=== PATIENT | female | born 1995 | race Caucasian/White ===

== ENCOUNTER 2023-03-28 16:28 | Emergency (ER) | payer OTHER, SELFPAY ==
[2023-03-28 16:31] VITALS: BP 136/81; PULSE 98; RESP 18; TEMP 36.9; O2SAT 100
--- NOTE | 2023-03-28 17:25 | ED.GENADULT ---
HPI - General Adult General Chief complaint: Unspecified Stated complaint: lip ring removal Time Seen by Provider: 03/28/23 16:36 History of Present Illness HPI narrative: Shanthi Dumont is a 27 y/o female who presents with reports of having her right lower lip pierced for about 3 months, the actual piercing was removed and she was worried about it closing so she placed a vega chain ring in its place. Now she comes in with concerns of infection and wants the ring out. She states that she can not get it removed herself. Related Data Allergies Allergy/AdvReac Type Severity Reaction Status Date / Time aspirin Allergy Unknown Verified 03/28/23 17:10 red dye Allergy Diarrhea Verified 03/28/23 17:09 Review of Systems Review of Systems: CONSTITUTIONAL: Denies fever, chills, or sweats. EYES: Denies visual changes, redness, or discharge. ENT: Denies rhinorrhea, congestion, sore throat, or otalgia. CARDIOVASCULAR: Denies chest pain, palpitations, or edema. RESPIRATORY: Denies cough or dyspnea. GASTROINTESTINAL: Denies abdominal pain, nausea, vomiting, or diarrhea. GENITOURINARY: Denies dysuria or hematuria. SKIN: skin irritation and pain to her right lower lip after placing a vega chair through her bottom lip MUSCULOSKELETAL: Denies back pain, joint pain, or myalgia. NEUROLOGIC: Denies headache, numbness, dizziness, or weakness. PSYCHIATRIC: Denies anxiety or depression. Exam Narrative: GENERAL: Well-appearing, well-nourished, and in no acute distress. HEAD: Normocephalic, atraumatic. EYES: PERRLA and EOMI. ENT: Nares clear, no rhinorrhea or epistaxis. Mucous membranes moist, notable irritation to the right lower lip where the piercing is. Oropharynx without tonsillar hypertrophy exudate or other lesions. NECK: Supple. No adenopathy or masses. No carotid bruits or JVD CHEST: Clear to auscultation. No respiratory distress. No wheezes rales or rhonchi HEART: Regular rate and rhythm. No murmur heard. Normal peripheral pulses. ABDOMEN: Soft, nontender, nondistended, normal active bowel sounds. EXTREMITIES: Normal range of motion. No edema. SKIN: No rash NEURO: No focal deficits. Alert and oriented x3. PSYCH: Normal mood and affect. Course Vital Signs Vital signs: Vital Signs Temperature 36.9 C 03/28/23 16:31 Pulse Rate 98 03/28/23 16:31 Respiratory Rate 18 03/28/23 16:31 Blood Pressure 136/81 03/28/23 16:31 Pulse Oximetry 100 03/28/23 16:31 Oxygen Delivery Room Air 03/28/23 16:31 Temperature 36.9 C 03/28/23 16:31 Pulse Rate 98 03/28/23 16:31 Respiratory Rate 18 03/28/23 16:31 Blood Pressure 136/81 03/28/23 16:31 Pulse Oximetry 100 03/28/23 16:31 Oxygen Delivery Room Air 03/28/23 16:31 Medical Decision Making Differential Diagnosis Differential Diagnosis: ON exam pt is noted to have a piece of metal clamped together to her right lower lip Obvious dented area to her lower lip where the lip ring is and some skin break down to the inner portion of her lip. area anesthetized with topical lidocaine, pt tolerated well Attempted to pry apart the lip ring with Shanthi clamps and forceps and could not get the ring to budge collaborated with Dr. Bauer who was able to use a ring cutter off of trauma sheers to cut part of the metal off and then the ring was able to get looped out of the hole. Patient with minimal bleeding and tolerated well, no complication, counseled pt to keep area clean will continue pt on Keflex BID for 1 week strict return precautions provided patient denies any questions or concerns Medical Records Medical records reviewed: Yes I reviewed the external patient's medical records. Vital Signs Vital Signs: Vital Signs Temperature 36.9 C 03/28/23 16:31 Pulse Rate 98 03/28/23 16:31 Respiratory Rate 18 03/28/23 16:31 Blood Pressure 136/81 03/28/23 16:31 Pulse Oximetry 100 03/28/23 16:31 Oxygen Delivery Room Air
[2023-03-28] MEDS: CEPHALEXIN 500 MG CAPSULE PO (17:39)
[2023-03-28] MEDS: LIDOCAINE, EPINEPHRINE, TETRACAINE VISCOUS SOLN 3 ML TOPICAL (17:40)
== END 2023-03-28 18:19 | disposition home or self-care (01) ==
PROVIDERS: Emergency Provider Nurse Practitioner Family; PCP Physician Assistant
DX: S00.551A Superficial foreign body of lip, initial encounter (principal); Y29.XXXA Contact with blunt object, undetermined intent, initial encounter
CPT/HCPCS: 99283; A9270